=== PATIENT | female | born 1965 | race Caucasian/White ===

== ENCOUNTER → 2017-02-15 | Outpatient (CLI) | payer BC ==
[~2017-02-15] MED LIST: SULF1TAB38 PO
--- NOTE | 2017-02-15 19:44 | Diagnostic Imaging Report ---
EXAMINATION: Digital mammogram bilateral screening with tomosynthesis. INDICATION: Screening. COMPARISON: This study was compared to the prior exam of 02/18/2016, 02/04/2015, and 01/28/2014. At this time, there are no current complaints. The current study was also evaluated with a Computer Aided Detection (CAD) system. FINDINGS: There are bilateral breast implants in place. The implants appear similar to the prior exam. There is no sign of an extracapsular rupture of either implant. The fibroglandular tissue overlying each implant is heterogeneously dense. This does limit the sensitivity of this exam. Overall, there does not appear to have been any significant change when compared to the previous studies. There is no primary or secondary sign of malignancy noted. The tomographic views also fail to show any sign of malignancy. IMPRESSION: 1. There is no evidence of malignancy. 2. The implants appear stable. There is no sign of an extracapsular rupture of either implant. ACR BI-RADS Category 1: Negative. Result letter will be mailed to the patient. Note: At least 10% of breast cancer is not imaged by mammography. Dictated by: Dictated on workstation # [id number]
== END ==
LOC: RAD 10:47
PROVIDERS: ATTEND Obstetrics & Gynecology
DX: Z12.31 Encounter for screening mammogram for malignant neoplasm of breast (principal); Z98.82 Breast implant status
CPT/HCPCS: 77067